=== PATIENT | female | born 1960 ===

== ENCOUNTER 2018-11-30 09:01 | Day surgery (SDC) | payer OTHER ==
[~2018-11-30] VITALS: Ht 162.6 cm; Wt 75.2 kg
[2018-11-30] MEDS ORDERED: ADULT ASPIRIN R81 MG PO (09:35)
[2018-11-30] MEDS ORDERED: PRED5 PO (09:36)
== END 2018-11-30 10:58 | disposition home or self-care (01) ==
LOC: ORSCSDS 09:01
PROVIDERS: Internal Medicine Gastroenterology
PROC: 0DBP8ZX Excision of Rectum, Via Natural or Artificial Opening Endoscopic, Diagnostic (ICD-10-PCS; principal; 2018-11-30 10:15)
DX: K51.90 Ulcerative colitis, unspecified, without complications (principal); K91.850 Pouchitis; F17.210 Nicotine dependence, cigarettes, uncomplicated; Z79.899 Other long term (current) drug therapy
CPT/HCPCS: 36415; 88305; J2704; J7120